=== PATIENT | female | born 1965 | race Caucasian/White ===

== ENCOUNTER → 2018-04-21 | Outpatient (CLI) | payer OTHER ==
[~2018-04-21] MED LIST: APRISO0.375 GM PO; CELEXA20 MG PO; CLARITIN10 MG PO; ESTRACE0.5 MG PO; EXALGO16 MG PO; FLAGYL500 MG PO; LISINOPRIL20 MG PO; NORCO 10-325 T1 EACH PO; NORVASC5 MG PO; PROVERA2.5 MG PO; TRAZODONE HCL50 MG PO
== END ==
LOC: CAT 14:46
DX: Z13.6 Encounter for screening for cardiovascular disorders (principal)

== ENCOUNTER → 2019-05-26 | Outpatient (CLI) | payer BC, OTHER ==
[~2019-05-26] MED LIST changes: +ASPIR 8181 MG PO; +ATIVAN0.5 MG PO; +BENTYL 10 MG CA10 M1 PO; +CYMBALTA60 MG PO; +FENTANYL 0.50 MCG/ML TRANSDERM; +NEURONTIN600 MG PO
== END ==
LOC: ULTRA 16:02
DX: E04.2 Nontoxic multinodular goiter (principal)

== ENCOUNTER → 2019-10-05 | Outpatient (CLI) | payer BC, OTHER ==
[~2019-10-05] VITALS: Ht 167.6 cm; Wt 80.7 kg
[~2019-10-05] MED LIST changes: +HUMIRA40 MG/0.1 SUBQ; +LIPITOR 10 MG10 M1 PO; +NARCAN4 MG NARES
[2019-10-05 10:42] VITALS: BP 145/97
--- NOTE | 2019-10-05 11:15 | NUR ---
Pain Clinic Assessment: 1. History of Osteoarthritis: Left Lower Extremity Right Lower Extremity History of Rheumatoid Arthritis: 2. Height: 5 ft. 6 in. 167.6 cm. Weight: 178.0 lb. oz. 80.740 kg. Patient's BMI: 28.7 3. Vital Signs: BP: 145/97 Pulse: 71 Resp: 20 Temp: 02 Sat: 100 ECG Mon: 4. Pain Intensity: 4 5. Fall Risk: Dizziness: N Needs help standing or walking: N Fallen in the last 3 months: N Fall risk comments: 6. Patient on Blood Thinner: None 7. History of Hypertension: Y 8. Opioid Therapy greater than 6 weeks: Y Opiate Contract Signed: 9. Risk Assessment Tool Provided: 10. Functional Assessment Tool: 11. Recreational Drug Use: Past greater than 3 mos Drug Type: MARIJUANIA Tobacco Use: Former Smoker Tobacco Type: Cigarettes Amount or Packs/day: 1 How Many Years: Alcohol Use: Yes Frequency: Special Occasions Quant: 3-4
--- NOTE | 2019-10-25 21:49 | HPC ---
[facility] [address] [place] [address] PAIN MANAGEMENT CONSULTATION Name: JACKI HURST Room #: REG ANKUSH Romina.#: [id number] Admission: 10/05/19 Attend Phys: Izaiah Price MD Discharge: Date of : 63 Report #: [id number] THIS REPORT FOR: //name// CC: Izaiah Tabor DATE OF SERVICE: 10/05/2019 CHIEF COMPLAINT: Pain in the back and left spine. HISTORY: The patient is a 54-year-old female who has been referred to the pain clinic. She has a history of sciatica. She had pain since 2008. She is having pain that is radiating down into her left leg. Notes that her foot is uncomfortable. There is a burning, shooting pain. Notes some pain in the mid back area as well. Does finds the pain is mostly aching, burning. Notes her pain is worse when she is bending. Sitting for a prolonged period of time can be problematic as well. Notes that repositioning is necessary to decrease the pain. Pain is better with use of her medications. Sometimes lying down, sometimes standing or walking can be beneficial. She describes it as continuous, steady, constant, burning, aching, gnawing. Rates it as a 4/10 today. She has had 2 surgeries on her back. She has been told that she has scar tissue. She has worked and lost 35 pounds. The patient stated that she had a ruptured disk in 2008. She does work. She does work at night. Has used morphine. This sometimes cause constipation as well as bloating. Has been using hydrocodone to help control the pain. Has had physical therapy. ALLERGIES: CODEINE, GI intolerance; NAPROSYN, swelling; NONSTEROIDAL ANTI-INFLAMMATORIES, GI intolerance. CURRENT MEDICATIONS: Adalimumab injections, Lipitor 20 mg, Wellbutrin 75 mg, Temovate cream topical, Cymbalta 60 mg, estradiol 0.5 mg, Duragesic 50 mcg per hour, gabapentin 300 mg 2 capsules nightly, Holt 10/325 one tablet q. 4 hours p.r.n., lisinopril 20 mg, Claritin 10 mg, Ativan 0.5 mg, Provera 2.5 mg, multivitamins, Desyrel 50 mg, vitamin D3, vitamin E 400 units. PAST MEDICAL HISTORY: Hypertension, stomach problems, Crohn's disease. PAST SURGICAL HISTORY: Diskectomy 05/2012 and arthroscopic surgery, bilateral knees, age 24. Tonsils and adenoids, age 16. Laparoscopy with laser at age 34, endometriosis. SOCIAL HISTORY: She is a registered nurse. She is working at this juncture. REVIEW OF SYSTEMS: Weight change, headaches, fatigue, wears glasses, frequent diarrhea, constipation, rectal bleeding, peptic ulcer, change in hair and nails, varicose veins, breast pain, frequent recurrent headaches, nervousness, [address] [address] PAIN MANAGEMENT CONSULTATION Name: JACKI HURST Room #: REG ANKUSH Hebert#: [id number] Admission: 10/05/19 Attend Phys: Izaiah Price MD Discharge: Date of : 63 Report #: [id number] depression, insomnia, hot and cold intolerance. LABORATORY DATA: No laboratory values are available at the time of our interview. PAIN CLINIC ASSESSMENT AND PQRS: 1. Left lower extremity and right lower extremity arthritic changes. 2. Rheumatoid arthritis. The patient is being treated for rheumatoid arthritis. 3. Height 5 feet 6 inches, weight 178 pounds, BMI is 28.7. 4. Vital signs: Blood pressure 145/97, pulse 71, respiratory rate 20, room air saturation is 100%. 5. Pain intensity 02/23. 6. Fall risk. The patient has not fallen in the last 3 months. 7. Blood thinner. The patient is not on a blood thinning medication. 8. Hypertension. The patient is not being treated for hypertension. 9. Opioids greater than 6 weeks. 10. Risk assessment tool. The patient receives medications from one source, moderate level. 11. Functional assessment tool . 12. Recreational drug use. The patient has used marijuana in the last 3 months. 13. Tobacco: The patient is a former smoker. The patient smokes 1 pack of cigarettes per day. 14. Alcohol: The patient drinks alcoholic beverages on special occasions. PHYSICAL EXAMINATION: GENERAL: The patient is a well-developed, well-nourished white female. Appears her stated age. She is alert and oriented x 3. Affect is appropriate. Speech is fluent. HEENT: Normocephalic, atraumatic. Extraocular eye muscles intact. Sclerae nonicteric. Mucous membranes are moist. NECK: Without adenopathy or JVD. HEART: Regular rate. ABDOMEN: Protuberant. Bowel sounds present. EXTREMITIES: Upper extremity muscle strength judged to be 5/5 for the major muscle groups in the upper extremity. Deep tendon reflexes are +2 for the biceps bilateral. The patient complains of pain and discomfort in the lower portion of her back with pain in the groin area and down into the left leg, which is burning, shooting in nature. Notes it is sometimes sharp. Positive straight leg raise on the left. IMPRESSION: 1. Chronic pain and sciatica, L5-S1 dermatomal distribution on the left. 2. History of Crohn's disease. Unable to take nonsteroidal anti-inflammatory medications. [facility] [address] [place] [address] PAIN MANAGEMENT CONSULTATION Name: JACKI HURST Room #: REG ANKUSH Anup#: [id number] Admission: 10/05/19 Attend Phys: Izaiah Price MD Discharge: Date of : 63 Report #: [id number] 3. Hypertension. 4. History of degenerative joint disease, status post back surgery. 5. Chronic opioid use to control pain. RECOMMENDATIONS: We discussed treatment options with the patient. At this juncture, she feels that the fentanyl patches are helpful. Feels that the hydrocodone medications are beneficial. At this point, she feels that she is able to engage in activities of daily living with reasonable amount of activity. Rates her pain as a 4/10. She is aware that opioid medications can be less effective as time goes on. She has not shown any signs of addiction. She appears to be taking her medication as prescribed. The patient might be a candidate for marijuana when the rules of [place] change. We would recommend that the patient to not partake of marijuana while she is receiving opioid medications from her physicians. Overall, I think she is on a reasonable regimen at this juncture. She could follow up with the pain clinic when she needs to. Otherwise, her primary physician may continue to provide her medications. Possibility of an epidural steroid injections in the future should the patient desire or an option. We would like to thank you for letting us participate in her care. We hope she continues to improve. <ELECTRONICALLY SIGNED> By: Izaiah Price MD 10/25/19 [id number] Izaiah Price MD /PMT
== END ==
LOC: PAIN 07:04
DX: M54.40 Lumbago with sciatica, unspecified side (principal); G89.29 Other chronic pain; I10 Essential (primary) hypertension; F11.90 Opioid use, unspecified, uncomplicated; Z98.890 Other specified postprocedural states; Z87.19 Personal history of other diseases of the digestive system; Z87.39 Personal history of other diseases of the musculoskeletal system and connective tissue; Z88.5 Allergy status to narcotic agent; Z88.8 Allergy status to other drugs, medicaments and biological substances; Z79.899 Other long term (current) drug therapy

== ENCOUNTER → 2019-11-21 | Outpatient (CLI) | payer OTHER | LOC: RAD 09:58 | DX: K50.80 Crohn's disease of both small and large intestine without complications (principal) ==